=== PATIENT | male | born 1950 | race Hispanic/Latino ===

== ENCOUNTER → 2018-07-21 | Day surgery (SDC) | payer MEDICARE ==
[2018-07-20 13:42] LABS: BASOPHILS % 0.6 % (0.0-1.0); EOSINOPHILS # (AUTO) 0.1 (0.0-0.4); EOSINOPHILS % 2.4 % (0.0-6.0); HEMATOCRIT 32.1 % (38.2-49.6); HEMOGLOBIN 10.3 g/dL (14.0-18.0); LYMPHOCYTES # (AUTO) 1.6 (1.0-3.2); LYMPHOCYTES % 30.3 % (18.0-39.1); MEAN CORPUSCULAR HEMOGLOBIN 29.5 pg (28-32); MEAN CORPUSCULAR HGB CONC 32.1 g/dL (31-35); MONOCYTES # (AUTO) 0.4 (0.2-0.8); MONOCYTES % 7.7 % (4.4-11.3); NEUTROPHILS # (AUTO) 3.2 (2.1-6.9); NEUTROPHILS % 58.8 % (38.7-80.0); PLATELET COUNT 169 x10e3/uL (140-360); RED BLOOD COUNT 3.49 x10e6/uL (4.3-5.7); RED CELL DISTRIBUTION WIDTH 13.9 % (11.7-14.4)
[~2018-07-21] MED LIST: ATORVASTATIN CA20 MG PO; CALCITRIOL0.25 MCG PO; EPHEDRINE SULFATE INJ 50 MG/10 ML SYR ONE; FENTANYL CITRATE/PF 100MCG/2 ML INJ ONE; GLIPIZIDE ER5 MG PO; HYDRALAZINE HCL 20 MG/ML VIAL ONE; HYOSCYAMINE SULFATE 0.5 MG/ML INJ ONE; LABETALOL HCL 20 ML ONE; LISINOPRIL10 MG PO; METOPROLOL SUCC50 MG PO; MIDAZOLAM HCL 2 MG/2 ML VIAL ONE; NIFEDIPINE ER30 M1 PO; PROPOFOL IV EMULSION 10 MG/ML 50 ML VIAL ONE
--- OUTSIDE RECORDS SUMMARY | 2018-07-21 07:54 | XMS REPORT ---
Author Author [facility] Address Unknown Phone Unavailable Care Team Providers Care Foreign Food Specialty Cook Name Role Phone Unavailable Unavailable Problems This patient has no known problems. Allergies, Adverse Reactions, Alerts This patient has no known allergies or adverse reactions. Medications This patient has no known medications. Encounters Start Date/Time End Date/Time Encounter Type Admission Type Attending [facility] Care Department Encounter ID 2018-06-27 03:51:57 2018-06-27 03:51:57 Emergency [facility] [id number] 2018-06-27 02:27:37 2018-06-27 02:27:37 Emergency [facility] [id number] 2018-06-02 00:35:35 2018-06-02 00:35:35 Emergency [facility] [id number] 2018-06-01 23:40:00 2018-06-01 23:40:00 Emergency [facility] [id number] 2018-06-01 22:39:30 2018-06-01 22:39:30 Emergency [facility] [id number] 2018-06-01 00:00:00 2018-06-01 00:00:00 Emergency [facility] [id number] 2018-01-11 03:15:46 2018-01-11 03:15:46 Emergency [facility] [id number] 2018-01-07 01:51:57 2018-01-07 01:51:57 Emergency [facility] [id number] 2018-01-07 01:16:44 2018-01-07 01:16:44 Emergency [facility] [id number]
--- OUTSIDE RECORDS SUMMARY | 2018-07-21 07:54 | XMS REPORT | Clinical Summary ---
Author Author [facility] Organization [facility] Address Unknown Phone Unavailable Care Team Providers Care Vice President Consulting Services Name Role Phone PCP Unavailable Allergies No Known Allergies Medications End Date Status Medication Sig Dispensed Refills Start Date Active traMADol (ULTRAM) 50 mg Take 1 tablet 30 tablet 0 tabletIndications: Acute by mouth 8 foot pain, left every 6 hours as needed for Pain. Active gabapentin (NEURONTIN) Take 1 30 capsule 0 100 mg capsule by 8 capsuleIndications: Acute mouth at foot pain, left bedtime nightly. Active NIFEdipine (PROCARDIA XL) Take 2 30 tablet 0 30 mg extended release tablets by 9 tabletIndications: mouth daily. Hypertension, unspecified type 01/17/2018 clindamycin (CLEOCIN HCL) Take 1 30 capsule 0 300 mg capsule by 8 capsuleIndications: mouth 3 times Cellulitis of toe of left daily for 10 foot days. 06/27/2018 Discontinued NIFEdipine (PROCARDIA XL) Take 2 30 tablet 0 30 mg extended release tablets by 9 tabletIndications: mouth daily. Hypertension, unspecified type 06/27/2018 Discontinued NIFEdipine (PROCARDIA XL) Take 2 30 tablet 0 30 mg extended release tablets by 9 tabletIndications: mouth daily. Hypertension, unspecified type Active Problems Problem Noted Date Acute foot pain, left 01/07/2018 Cellulitis of extremity 01/07/2018 Encounters Care Team Description Date Type Specialty Carol Ortiz MD Hypertension, unspecified type (Primary Dx); Intractable headache, unspecified chronicity pattern, unspecified headache type 06/27/2018 Emergency Emergency Medicine 06/27/2018 Travel Felipe Smith MD Mehta, Amit M, MD Acute intractable headache, unspecified headache type (Primary Dx) 06/01/2018 Emergency Emergency Medicine - 06/02/2018 06/01/2018 Travel Latoya Galan MD Acute foot pain, left (Primary Dx) 01/11/2018 Emergency Emergency Medicine Jaun Blood MD Acute foot pain, left (Primary Dx); Cellulitis of toe of left foot 01/07/2018 Emergency Emergency Medicine after 07/20/2017 Social History Date Tobacco Use Types Packs/Day Years Used Never Assessed Sex Assigned at Date Recorded Not on file Industry Job Start Date Occupation Not on file Not on file Not on file Travel End Travel History Travel Start No recent travel history available. Last Filed Vital Signs Reading Time Taken Comments Vital Sign 267/120 06/27/2018 9:20 AM CDT Blood Pressure 70 06/27/2018 9:20 AM CDT Pulse 36.4 C (97.6 F) 06/27/2018 7:00 AM CDT Temperature 18 06/27/2018 9:20 AM CDT Respiratory Rate 98% 06/27/2018 9:20 AM CDT Oxygen Saturation - - Inhaled Oxygen Concentration 87.2 kg (192 lb 4.8 oz) 06/27/2018 12:38 AM CDT Weight - - Height - - Body Mass Index Plan of Treatment Health Maintenance Due Date Last Done Comments Colorectal Cancer Scrn 2001 Annual (FIT/FOBT) Age 50 to 75 IMM Pneumococcal Age 65 2016 and Up IMM Influenza Seasonal 12/01/2018Dec to May (>/=19 yrs) Procedures Comments Procedure Name Priority Date/Time Associated Diagnosis CT HEAD W/O CONTRAST STAT 06/27/2018 Hypertension, unspecified 3:57 AM CDT type Intractable headache, unspecified chronicity pattern, unspecified headache type BMP POC Routine 06/27/2018 3:40 AM CDT 12 LEAD EKG Routine 06/27/2018 1:24 AM CDT URINE CULTURE Routine 06/02/2018 1:10 AM CDT UA CHEMISTRIES STAT 06/02/2018 1:10 AM CDT URINE DRUG SCREEN STAT 06/02/2018 1:10 AM CDT AMMONIA STAT 06/02/2018 1:02 AM CDT XRAY CHEST 1 VIEW STAT 06/02/2018 Acute intractable 12:35 AM CDT headache, unspecified headache type BLOOD CULTURE STAT 06/02/2018 12:[address] HEAD W/O CONTRAST STAT 06/01/2018 Acute intractable 11:46 PM CDT headache, unspecified headache type VBG POC Routine 06/01/2018 10:51 PM CDT BMP POC Routine 06/01/2018 10:50 PM CDT TROPONIN I POC Routine 06/01/2018 10:48 PM CDT 12 LEAD EKG Routine 06/01/2018 10:47 PM CDT SALICYLATE Routine 06/01/2018 10:47 PM CDT ACETAMINOPHEN Routine 06/01/2018 10:47 PM CDT HIV-1/HIV-2 ROUTINE STAT 06/01/2018 SCREENING 10:47 PM CDT GLUCOSE POC Routine 06/01/2018 10:36 PM CDT GLUCOSE POC Routine 01/11/2018 3:14 AM FLOOR DIRECTOR XRAY FOOT 3 VIEWS MIN STAT 01/07/2018 Acute foot pain, left 2:05 AM FLOOR DIRECTOR BMP POC Routine 01/07/2018 1:44 AM FLOOR DIRECTOR BASIC METABOLIC PANEL STAT 01/07/2018 1:39 AM FLOOR DIRECTOR HIV-1/HIV-2 ROUTINE STAT 01/07/2018 SCREENING 1:39 AM FLOOR DIRECTOR GLUCOSE POC Routine 01/07/2018 12:09 AM FLOOR DIRECTOR after 07/20/2017 Results * CT HEAD W/O CONTRAST (06/27/2018 3:57 AM CDT) Only the most recent of 2 results within the time period is included. Specimen Impressions Performed At IMPRESSION: SMS No acute intracranial abnormality. This [facility] radiology report is a preliminary resident dictation until finalized by an attending.Changes to this preliminary report may occur in an additional preliminary or finalized version. Dictated By: Jorge Ponce DO, 06/27/2018 4:02 AM I have reviewed the study and agree with the findings in this report. Signed By: Leela Maya MD, 06/27/2018 4:32 AM Narrative Performed At EXAM: CT BRAIN WITHOUT CONTRAST [facility] DATE: 06/27/2018 3:57 AM INDICATION: Neuro deficit(s), subacute. Hypertension, unspecified type COMPARISON: CT head without contrast from 06/01/2018. TECHNIQUE: Axial CT images of the brain are acquired without contrast. Sagittal and coronal reformats. IV contrast: None. DLP: 1017.6 mGy-cm FINDINGS: There is no edema, hemorrhage, mass lesion or other acute intracranial abnormality. There is no fracture of the skull, skull base, or visible facial bones. The paranasal sinuses and orbits are unremarkable. Procedure Note Interface, Rad/Mammog In - 06/27/2018 4:37 AM CDT EXAM: CT BRAIN WITHOUT CONTRAST DATE: 06/27/2018 3:57 AM INDICATION: Neuro deficit(s), subacute. Hypertension, unspecified type COMPARISON: CT head without contrast from 06/01/2018. TECHNIQUE: Axial CT images of the brain are acquired without contrast. Sagittal and coronal reformats. IV contrast: None. DLP: 1017.6 mGy-cm FINDINGS: There is no edema, hemorrhage, mass lesion or other acute intracranial abnormality. There is no fracture of the skull, skull base, or visible facial bones. The paranasal sinuses and orbits are unremarkable. IMPRESSION IMPRESSION: No acute intracranial abnormality. This [facility] radiology report is a preliminary resident dictation until finalized by an attending. Changes to this preliminary report may occur in an additional preliminary or finalized version. Dictated By: Jorge Ponce DO, 06/27/2018 4:02 AM I have reviewed the study and agree with the findings in this report. Signed By: Leela Maya MD, 06/27/2018 4:32 AM Performing Organization Address City/State/Zipcode Phone Number SMS * BMP POC (06/27/2018 3:40 AM CDT) Only the most recent of 3 results within the time period is included. CO2 POC 22Comment: Physician Notified 21 - 32 mmol/L [facility] MAIN-STATION 1 Chloride POC 110 (H) 98 - 107 mmol/L [facility] MAIN-STATION 1 Potassium POC 4.5 3.50 - 5.10 mmol/L [facility] MAIN-STATION 1 Sodium POC 143 136 - 145 mmol/L [facility] MAIN-STATION 1 Glucose POC 99 74 - 106 mg/dL [facility] MAIN-STATION 1 Urea Nitrogen 50 (H) 7 - 18 mg/dL [facility] POC MAIN-STATION 1 Creatinine POC 4.2 (H) 0.6 - 1.3 mg/dL [facility] MAIN-STATION 1 Calcium Ionized 1.20 1.15 - 1.29 mmol/L [facility] MAIN-STATION 1 Hemoglobin POC 10.5 (L) 14.0 - 18.0 g/dL [facility] MAIN-STATION 1 Hematocrit POC 31.0 (L) 40.0 - 54.0 % [facility] MAIN-STATION 1 GFR, Estimated 14 mL/min/1.73 m2 [facility] MAIN-STATION 1 GFR, Estim, 17 mL/min/1.73 m2 [facility] Afr-Am MAIN-STATION 1 Specimen Performing Organization Address [facility] Phone Number MISYS [facility] MAIN-STATION 1 * 12 LEAD EKG (06/27/2018 1:24 AM CDT) 12 LEAD EKG FOR [facility] Test Date:2018-06-27 Pat Name: BLAZE BOLANOS Department: [id number] Room: 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 :[id number] 03-26 Requested By: LEELA Lucai Order Number: [id number] Reading MD: Carlos Akhtar Measurements Intervals [place] Rate: 68 P:57 [place]: 197 QRS: -9 QRSD: 109 T: 72 QT: 421 QTc:450 Interpretive Statements SINUS RHYTHM POSSIBLE LEFT ATRIAL ENLARGEMENT POOR R WAVE PROGRESSION Electronically Signed On 06-29-2018 18:10:02 CDT by Carlos Akhtar Specimen Performing Organization Address [facility] Phone Number [facility] * UA CHEMISTRIES (06/02/2018 1:10 AM CDT) Color Yellow [facility] BLOOD BANK Clarity Clear [facility] BLOOD BANK Spec [place] 1.018 1.001 - 1.035 [facility] BLOOD BANK pH 5.0 5 - 8 [facility] BLOOD B[facility] Protein 3+ (A) NEG [facility] BLOOD [facility] Glucose 1+ (A) NEG [facility] Ketone Negative NEG [facility] BLOOD [facility] Bilirubin Negative NEG [facility] BLOOD B[facility] Nitrate Negative NEG [facility] BLOOD BANK Urobilinogen <1.0 0.2 - 1.0 EU/dL [facility] BLOOD BANK Leukocyte Negative NEG [facility] BLOOD [facility] Blood Negative NEG [facility] BLOOD BANK RBC 2 0 - 4 /HPF [facility] BLOOD BANK WBC 2 0 - 5 /HPF [facility] BLOOD BANK Epithelial Cell <1 /HPF [facility] BLOOD BANK Specimen Urine Performing Organization Address City/State/Zipcode Phone Number [facility] BLOOD BANK * URINE DRUG SCREEN (06/02/2018 1:10 AM CDT) Amphetamine Negative NEG [facility] Comment: MAIN-STATION 1 Calibrated Standard: D-Methamphetamine Positive if urine level >gk=3614 ng/mL Test performed on [id number] using EMIT Immunoassay Barbiturate Negative NEG [facility] Comment: MAIN-STATION 1 Calibrated Standard: Secobarbital Positive if urine level is >yc=334 ng/mL Test performed on [id number] using EMIT Immunoassay Benzodiazepine Negative NEG [facility] Comment: MAIN-STATION 1 Calibrated Standard: Lormethazepam Positive if urine level is >gn=523 ng/mL Test performed on [id number] using EMIT Immunoassay Cannabinoid Negative NEG [facility] Comment: MAIN-STATION 1 Calibrated Standard: 11 nor-delta(9)-THC carboxylic a Positive if urine level >or=50 Test performed on [id number] using EMIT Immunoassay Cocaine Negative NEG [facility] Comment: MAIN-STATION 1 Calibrated Standard: Benzoylecgonine Positive if urine level >zh=895 Test performed on [id number] using EMIT Immunoassay Opiate, Ur Negative NEG [facility] Comment: MAIN-STATION 1 Calibrated Standard: Morphine Positive if urine level >gr=872 Test performed on [id number] using EMIT Immunoassay PCP Negative NEG [facility] Comment: MAIN-STATION 1 Calibrated Standard: Phencyclidine Positive if urine level >or=25 Test performed on [id number] using EMIT Immunoassay Urine Toxicology Screen results are to be used only for Medical purposes. Specimen Urine Performing Organization Address City/[facility]/Zipcode Phone Number [facility] MAIN-STATION 1 * URINE CULTURE (06/02/2018 1:10 AM CDT) Spec Urine [facility] Description MICROBIOLOGY Order Comments None [facility] MICROBIOLOGY Culture No growth 2 days [facility] MICROBIOLOGY Report Status Final 06/04/2018 [facility] MICROBIOLOGY Specimen Urine - URINE Performing Organization Address [facility] Phone Number [facility] MICROBIOLOGY [facility] MICROBIOLOGY * AMMONIA (06/02/2018 1:02 AM CDT) Ammonia 51 16 - 53 umol/L [facility] MAIN-STATION 1 Specimen Blood Performing Organization Address [facility] Phone Number MISROYCE [facility] MAIN-STATION 1 * XRAY CHEST 1 VIEW (06/02/2018 12:35 AM CDT) Specimen Impressions Performed At IMPRESSION: SMS No acute cardiopulmonary disease. Signed By: Herminio Evans MD, 06/02/2018 12:52 AM Narrative Performed At EXAM: XR CHEST 1 VIEW [facility] DATE:06/02/2018 12:44 AM INDICATION: concern for pneumonia, AMS COMPARISON: None TECHNIQUE:Single AP view of the chest. DISCUSSION:Low lung volumes with clear lungs. Normal heart size and mediastinal contours. No overt pulmonary edema. No pneumothorax nor excess pleural fluid. No acute osseous abnormality. Procedure Note Interface, Rad/Mammog In - 06/02/2018 12:57 AM CDT EXAM: XR CHEST 1 VIEW DATE: 06/02/2018 12:44 AM INDICATION: concern for pneumonia, AMS COMPARISON: None TECHNIQUE: Single AP view of the chest. DISCUSSION: Low lung volumes with clear lungs. Normal heart size and mediastinal contours. No overt pulmonary edema. No pneumothorax nor excess pleural fluid. No acute osseous abnormality. IMPRESSION IMPRESSION: No acute cardiopulmonary disease. Signed By: Herminio Evans MD, 06/02/2018 12:52 AM Performing Organization Address [facility] Phone Number [facility] * BLOOD CULTURE (06/02/2018 12:34 AM CDT) Spec Blood [facility] Description MAIN-STATION 2 Order Comments None [facility] MAIN-STATION 2 Culture No growth 5 days J MICROBIOLOGY Report Status Final 06/07/2018 [facility] MICROBIOLOGY Specimen Blood bag - BLOOD Performing Organization Address [facility] Phone Number [facility] MAIN-STATION 2 [facility] MICROBIOLOGY * VBG POC (06/01/2018 10:51 PM CDT) pH, Sadiq POC 7.41 7.33 - 7.43 [facility] MAIN-STATION 1 pCO2, Sadiq POC 39.6 38.0 - 50.0 mm Hg [facility] MAIN-STATION 1 pO2, Sadiq POC 55 50 - 75 mm Hg [facility] MAIN-STATION 1 Base Excess, 1 mmol/L [facility] Sadiq POC MAIN-STATION 1 HCO3, Sadiq POC 25.2 22.0 - 26.0 mmol/L [facility] MAIN-STATION 1 % Sat, Sadiq POC 88 (H) 60 - 85 % [facility] MAIN-STATION 1 Lactic Acid, 0.86 0.4 - 2.0 mmol/L [facility] Sadiq POC MAIN-STATION 1 TCO2, SADIQ POC 26 21 - 32 mmol/L [facility] MAIN-STATION 1 Specimen Performing Organization Address [facility] Phone Number [facility] MAIN-STATION 1 * TROPONIN I POC (06/01/2018 10:48 PM CDT) Troponin POC 0.02 0.00 - 0.08 ng/mL [facility] MAIN-STATION 1 Specimen Performing Organization Address [facility] Phone Number [facility] MAIN-STATION 1 * 12 LEAD EKG (06/01/2018 10:47 PM CDT) 12 LEAD EKG FOR [facility] Test Date:2018-06-01 Pat Name: BLAZE BOLANOS Department: [id number] Room: [facility] 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: M 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: :[id number] Requested By: FELIPE Mays Order Number: [id number] Reading MD: Jaylen PACHECO Measurements Intervals [place] Rate: 91 P:63 [place]: 193 QRS: -7 QRSD: 106 T: 54 QT: 378 QTc:466 Interpretive Statements SINUS RHYTHM Poor anterior R wave cannot r/o prior Anteroseptal Infarct Borderline prolonged QTc Abnormal ECG Electronically Signed On 06-02-2018 12:19:26 CDT by Jaylen PACHECO Specimen Performing Organization Address City/[facility] Phone Number [facility] * HIV-1/HIV-2 ROUTINE SCREENING (06/01/2018 10:47 PM CDT) Only the most recent of 2 results within the time period is included. HIV-1/HIV-2 Negative NEG [facility] BLOOD [facility] Specimen Performing Organization Address City/[facility] Phone Number [facility] BLOOD [facility] * SALICYLATE (06/01/2018 10:47 PM CDT) Salicylate <2.5 (L)Comment: Test 2.8 - 30 mg/dL [facility] performed on [id number] using EMIT MAIN-STATION 1 Immunoassay Specimen Performing Organization Address [facility] Phone Number MISYS [facility] MAIN-STATION 1 * ACETAMINOPHEN (06/01/2018 10:47 PM CDT) Acetaminophen <10.00 (L)Comment: Test 10 - 30 ug/mL [facility] performed on [id number] using EMIT MAIN-STATION 1 Immunoassay Specimen Performing Organization Address [facility] Phone Number MISYS [facility] MAIN-STATION 1 * GLUCOSE POC (06/01/2018 10:36 PM CDT) Only the most recent of 3 results within the time period is included. Glucose POC 206 (H) 74 - 106 mg/dL [facility] MAIN-STATION 1 Specimen Performing Organization Address [facility] Phone Number MISYS [facility] MAIN-STATION 1 * XRAY FOOT 3 VIEWS MIN (01/07/2018 2:05 AM FLOOR DIRECTOR) Specimen Impressions Performed At IMPRESSION:No acute abnormality. SMS This [facility] radiology report is a preliminary resident dictation until finalized by an attending.Changes to this preliminary report may occur in an additional preliminary or finalized version. I have reviewed the study and agree with the findings in this report. Signed By: Jamie Huizar MD, 01/07/2018 5:02 AM Narrative Performed At EXAM: XR LEFT FOOT 3 VIEWS SMS DATE:01/07/2018 2:10 AM INDICATION: Left foot pain and swelling. Acute foot pain, left COMPARISON: None TECHNIQUE:AP, lateral and oblique foot radiographs DISCUSSION: No acute fracture or malalignment is identified. Diffuse decrease in bone density. No soft tissue abnormality is identified. Procedure Note Interface, Rad/Mammog In - 01/07/2018 5:07 AM FLOOR DIRECTOR EXAM: XR LEFT FOOT 3 VIEWS DATE: 01/07/2018 2:10 AM INDICATION: Left foot pain and swelling. Acute foot pain, left COMPARISON: None TECHNIQUE: AP, lateral and oblique foot radiographs DISCUSSION: No acute fracture or malalignment is identified. Diffuse decrease in bone density. No soft tissue abnormality is identified. IMPRESSION IMPRESSION: No acute abnormality. This [facility] radiology report is a preliminary resident dictation until finalized by an attending. Changes to this preliminary report may occur in an additional preliminary or finalized version. I have reviewed the study and agree with the findings in this report. Signed By: Jamie Huizar MD, 01/07/2018 5:02 AM Performing Organization Address City/State/Zipcode Phone Number SMS * BASIC METABOLIC PANEL (01/07/2018 1:39 AM FLOOR DIRECTOR) CO2 23 21 - 32 mmol/L [facility] Chloride 109 (H) 98 - 107 mmol/L [facility] Potassium 4.9 3.50 - 5.10 mmol/L [facility] Sodium 139 136 - 145 mmol/L [facility] Glucose 133 (H) 70 - 99 mg/dL [facility] Urea Nitrogen 63 (H) 7 - 18 mg/dL [facility] Creatinine 5.04 (H) 0.60 - 1.30 mg/dL [facility] Anion Gap 7 [facility]LOOD B[facility] Calcium 8.6 8.50 - 10.20 mg/dL [facility] BLOOD BANK GFR, Estimated 12 mL/min/1.73 m2 [facility] BLOOD BANK GFR, Estim, 14 mL/min/1.73 m2 [facility] BLOOD BANK Afr-Am Specimen Blood Performing Organization Address City/State/Zipcode Phone Number MISYS [facility] BLOOD BANK after 07/20/2017 Insurance Type Payer Benefit Subscriber ID Effective Phone Address Plan / Dates Group [facility] xxxxxxxx 2018-P [phone] [facility] [place] resent [id number] [address] [place] [address] [place] MEDICAID [id number] xxxxxxxxx 2017-P [phone] [address] QUAL[address] resent [id number] MEDIC[place] BENEFICIAR [phone] Y
[2018-07-21 09:50] VITALS: BP 182/87
== END | disposition home or self-care (01) ==
LOC: OR 07:52 → EDBD 15:00
PROVIDERS: ATTEND Internal Medicine Gastroenterology
DX: D64.9 Anemia, unspecified (principal); D12.3 Benign neoplasm of transverse colon; K29.50 Unspecified chronic gastritis without bleeding; K29.80 Duodenitis without bleeding; K21.0 Gastro-esophageal reflux disease with esophagitis; K57.30 Diverticulosis of large intestine without perforation or abscess without bleeding; K44.9 Diaphragmatic hernia without obstruction or gangrene; I10 Essential (primary) hypertension; E11.9 Type 2 diabetes mellitus without complications; N28.9 Disorder of kidney and ureter, unspecified; Z01.810 Encounter for preprocedural cardiovascular examination; Z01.812 Encounter for preprocedural laboratory examination; Z79.82 Long term (current) use of aspirin; Z79.84 Long term (current) use of oral hypoglycemic drugs
CPT/HCPCS: 36415; 43239; 45385; 85025; 93005; J0360; J1980; J2250; J2704; J3490; 45378